=== PATIENT | female | born 1945 | race Caucasian/White ===

== ENCOUNTER 2016-12-07 12:34 | Emergency (ER) | payer MEDICARE, MEDICAID ==
[~2016-12-07] VITALS: Ht 157.5 cm; Wt 50.0 kg
[~2016-12-07 12:34] MED LIST: APIX5TAB PO; BACT800T5 PO; CYMB30CA PO; ESTR2TAB PO; FLAG500T PO; GABA300C3 PO; HYDR-3129 PO; IMDU30TA PO; MAGN500T4 PO; METO50TA PO; NIFE1TAB86 PO; ONDA4TAB7 PO; PRED5 PO; PROM25TA5 PO; PROT40TA PO; XANA0.5T PO
[2016-12-07 12:37] VITALS: BP 178/90; PULSE 82; RESP 16; TEMP 98.6; O2SAT 94
[2016-12-07] MEDS ORDERED: ISOS60TA PO (13:02)
[2016-12-07] MEDS ORDERED: HYDR-3535 PO (13:02)
[2016-12-07] MEDS ORDERED: ESTR2TAB PO (13:02)
[2016-12-07] MEDS ORDERED: ALPR.5 PO (13:02)
[2016-12-07] MEDS ORDERED: PARO1TAB72 PO (13:02)
[2016-12-07] MEDS ORDERED: PRED2.5T PO (13:02)
[2016-12-07] MEDS ORDERED: GABA600T PO (13:02)
[2016-12-07] MEDS ORDERED: PANT40TA3 PO (13:02)
[2016-12-07] MEDS ORDERED: METO50TA11 PO (13:02)
--- NOTE | 2016-12-07 13:24 | PD ---
HPI Chief Complaint: Fall Time Seen by Provider: 13:01 Travel History International Travel<30 days: No Contact w/Intl Traveler<30days: No Traveled to known affect area: No History of Present Illness HPI Patient presents with complaints of headache since Thursday. Reports that on Thursday she lost her balance and hit her head on the wall. Denies any LOC. She does use a walker regularly. States this is not the worst headache she's ever had. Denies any changes in vision. Denies any nausea or vomiting. Denies any new chest pain shortness of breath urinary or bowel symptoms. Tetanus is up-to- date. PFSH Past Medical History Hx Anticoagulant Therapy: Yes (STOPPED 09/21/15) Arthritis: Yes Autoimmune Disease: Yes (PSITICOSIS (PARROT FEVER)) Anxiety: Yes Depression: Yes Heart Rhythm Problems: Yes (IRREGULAR W/PVC'S ) Cancer: No Cardiovascular Problems: Yes (HTN) High Cholesterol: No Congestive Heart Failure: No Cerebrovascular Accident: No Diabetes: No Diminished Hearing: No Endocrine: No Gastrointestinal Disorders: Yes (CHRONIC ABDOMINAL PAIN- DR. WOODS- GI DOCTOR) GERD: No Genitourinary: No Headaches: Yes Hypertension: Yes Immune Disorder: No Implanted Vascular Access Dvce: No Musculoskeletal: Yes (RIGHT KNEE, RIGHT FOOT, CLAVICLE) Neurologic: Yes (TEMPORAL ENTERITIS) Psychiatric: Yes Reproductive: No Respiratory: Yes (MASS IN RIGHT LUNG) Migraines: No Renal Failure: Yes Seizures: Yes Sickle Cell Disease: No Thyroid Disease: No Triglycerides - High: Yes Ulcer: No Tetanus Vaccination: < 5 Years Influenza Vaccination: Yes PNEUMOCCOCAL Vaccine (Year): 2 Menopausal: Yes Tubal Ligation: Yes (1973) Past Surgical History Abdominal Surgery: Yes (HEMMOROIDECTOMY) Cholecystectomy: Yes Gynecologic Surgery: Yes (1992 HYSTERECTOMY, 1973 TUBAL LIGATION) Hysterectomy: Yes Neurologic Surgery: Yes (BRAIN SURGERY AFTER SKULL FRACTURE 1967, TEMPORAL BIOPSY) Tonsillectomy: Yes Other Surgery: Yes (RIGHT FOOT, HEMORRHOID REMOVAL, POLYP REMOVAL) Family History Family Myocardial Infarction: Yes Social History Alcohol Use: No Tobacco Use: Yes (1/2 TO 3/4 DAILY) Substance Use: No Allergies-Medications (Allergen,Severity, Reaction): Coded Allergies: Adhesives (Unverified Allergy, Severe, syncope, 12/07/16) Demerol (Verified Allergy, Mild, 12/07/16) Latex (Verified Allergy, Mild, IRRITATION OF SKIN, 12/07/16) Augmentin (Verified Adverse Reaction, Intermediate, NAUSEA/VOMITING, ) Aspirin (Verified Adverse Reaction, Mild, nausea, 12/07/16) Uncoded Allergies: TAPE (Adverse Reaction, Severe, IRRITATION, 05/31/12) Reported Meds & Prescriptions Reported Meds & Active Scripts Active Reported Lortab (Hydrocodone-Acetaminophen) 10-325 Mg Tab 1 Tab PO Q4H PRN Xanax (Alprazolam) 0.5 Mg Tab 0.5 Mg PO HS PRN Pantoprazole (Pantoprazole Sodium) 40 Mg Tab 40 Mg PO DAILY Paroxetine (Paroxetine HCl) 20 Mg Tab 20 Mg PO DAILY Gabapentin 600 Mg Tab 600 Mg PO BID Isosorbide Mononitrate ER (Isosorbide Mononitrate) 60 Mg Tab 60 Mg PO DAILY Metoprolol Succinate ER 24 HR (Metoprolol Succinate) 50 Mg Tab 50 Mg PO DAILY Estradiol 2 Mg Tab 2 Mg PO BID Prednisone 2.5 Mg Tab 7.5 Mg PO DAILY Review of Systems General / Constitutional: No: Fever Eyes: No: Visual changes HENT: No: Headaches Cardiovascular: No: Chest Pain or Discomfort Respiratory: No: Shortness of Breath Gastrointestinal: No: Abdominal Pain Genitourinary: No: Dysuria Musculoskeletal: No: Pain Skin: No Rash Neurologic: No: Weakness Psychiatric: No: Depression Endocrine: No: Polydipsia Hematologic/Lymphatic: No: Easy Bruising Physical Exam Narrative GENERAL: Well-nourished, well-developed patient. SKIN: Focused skin assessment warm/dry. HEAD: Normocephalic. EYES: No scleral icterus. No injection or drainage. Pupils equal round reactive light accommodation NECK: Supple, trachea midline. No JVD or lymphadenopathy. CARDIOVASCULAR: Regular rate and rhythm without murmurs, gallops, or rubs. RESPIRATORY: Breath sounds equal bilaterally. No accessory muscle use. GASTROINTESTINAL: Abdomen soft, non-tender, nondistended. MUSCULOSKELETAL: No cyanosis, or edema. BACK: Nontender without obvious deformity. No CVA tenderness. Small contusion and abrasion left forehead Data Data Last Documented VS Vital Signs Date Time Temp Pulse Resp B/P Pulse Ox O2 Delivery O2 Flow Rate FiO2 12/07/16 12:52 Room Air 12/07/16 12:37 98.6 82 16 178/[address] Brain W/O Iv Contrast(Rout) (12/07/16 ) Acetamin-Hydrocod 325-10 Mg ([place] 10-32 (12/07/16 13:30) MDM Medical Decision Making Medical Screen Exam Complete: Yes Emergency Medical Condition: Yes Differential Diagnosis Contusion, abrasion, subdural hematoma, cephalgia Narrative Course Assessment and plan discussed with patient and son at bedside. Patient states she normally takes her pain medications around 1:00. Stated she was going to leave AMA so that she can take her medication. Hydrocodone was provided so that she would stay for her CT. CT revealed no acute intracranial abnormality Diagnosis Primary Impression: Forehead contusion Qualified Code: S00.83XA - Forehead contusion, initial encounter Patient Instructions: Narcotic given in the ED, General Instructions Additional Instructions: Rest and fluids. Pain medication as previously prescribed. Follow-up with PCP. Return to emergency room with onset of any new symptoms. Med/Other Pt SpecificInfo: No Meds Exist/No RX given Disposition: 01 DISCHARGE HOME Condition: Good Adi Young MD Dec 07, 2016 13:23
[2016-12-07] MEDS ORDERED: ACETAMINOPHEN/HYDROcodone 325 MG/10 MG TAB PO ONE (13:30)
--- NOTE | 2016-12-07 13:30 | RADHPO ---
EXAM DATE/TIME: 12/07/2016 13:14 [facility] COMPARISON: CT BRAIN W/O CONTRAST, April 27, 2015, 9:16. INDICATIONS : Headache since fall two days ago. Frontal pain. RADIATION DOSE: 58.94 CTDIvol (mGy) MEDICAL HISTORY : Seizures. Hypertension. Temporal enteritis. SURGICAL HISTORY : Tonsillectomy. Hysterectomy.Tubal ligation.Temporal biopsy. Brain surgery after skull fracture in 196 8. ENCOUNTER: Initial ACUITY: 2 days PAIN SCALE: 4/10 LOCATION: frontal TECHNIQUE: Multiple contiguous axial images were obtained of the head. Using automated exposure control and adj ustment of the mA and/or kV according to patient size, radiation dose was kept as low as reasonably a chievable to obtain optimal diagnostic quality images. FINDINGS: Moderate periventricular white matter changes are noted. Ventricle size is appropriate. There are n o extra-axial fluid collections appreciated. There is no parenchymal hemorrhage, acute infarction or mass lesion. The posterior fossa is unremarkable. The orbits are unremarkable. CONCLUSION: Periventricular white matter changes otherwise negative. Julius Armstrong MD FACR on December 07, 2016 at 13:27 Board Certified Radiologist. This report was verified electronically.
== END 2016-12-07 13:52 | disposition home or self-care (01) ==
LOC: PHED 12:34
DX: S00.83XA Contusion of other part of head, initial encounter (principal); I49.3 Ventricular premature depolarization; F17.210 Nicotine dependence, cigarettes, uncomplicated; W19.XXXA Unspecified fall, initial encounter; Y93.9 Activity, unspecified; Y92.9 Unspecified place or not applicable; Y99.8 Other external cause status
CPT/HCPCS: 70450; 99283